=== PATIENT | male | born 1985 | race Caucasian/White ===

== ENCOUNTER 2024-10-11 21:22 | Emergency (ER) | payer BC ==
[~2024-10-11] VITALS: Ht 165.1 cm; Wt 68.0 kg
[2024-10-11 22:26] LABS: BASOPHILS ABSOLUTE AUTO 0.04 K/mm3 (0.00-0.23); BASOPHILS PERCENT AUTO 1 % (0-2); EOSINOPHILS ABSOLUTE AUTO 0.14 K/mm3 (0.00-0.68); EOSINOPHILS PERCENT AUTO 2 % (0-6); Hematocrit 45.3 % (37.0-53.0); Hemoglobin 15.4 g/dL (13.5-17.5); IMMATURE GRAN ABSOLUTE AUTO 0.01 K/mm3 (0.00-0.10); IMMATURE GRAN PERCENT AUTO 0 % (0-1); LYMPHOCYTES ABSOLUTE AUTO 2.18 K/mm3 (0.84-5.20); LYMPHOCYTES PERCENT AUTO 32 % (21-46); MONOCYTES ABSOLUTE AUTO 0.57 K/mm3 (0.16-1.47); MONOCYTES PERCENT AUTO 8 % (4-13); Mean Corpuscular HGB 30.4 pg (26.0-34.0); Mean Corpuscular Volume 90 fL (80-100); Mean Platelet Volume 11.9 fL (9.1-12.4); NEUTROPHILS ABSOLUTE AUTO 3.87 K/mm3 (1.96-9.15); NEUTROPHILS PERCENT AUTO 57 % (41-73); Platelet Count 229 K/mm3 (150-400); RDW Coefficient Variation 12.5 % (11.7-14.2); Red Blood Cell Count 5.06 M/mm3 (4.30-5.90); White Blood Cell Count 6.81 K/mm3 (4.00-11.30)
[2024-10-11 22:39] LABS: Albumin, Blood 3.9 g/dL (3.4-5.0); Albumin/Globulin Ratio 1.1 (0.8-1.8); Bilirubin, Total 0.6 mg/dL (0.1-1.0); Bun/Creatinine Ratio 11.5 (12.0-20.0); Creatinine, Blood 1.22 mg/dL (0.60-1.20); Globulin, Blood 3.4 g/dL (2.2-4.0); Potassium, Blood 3.6 mmol/L (3.5-5.5); Total Protein, Blood 7.3 g/dL (6.4-8.2)
== END 2024-10-11 23:30 | disposition other institution (70) ==
LOC: ER 21:22
PROVIDERS: Physician Assistant
DX: Z65.9 Problem related to unspecified psychosocial circumstances (principal)
CPT/HCPCS: 80053; 85025; 93005; 93010; 99284-25

== ENCOUNTER 2024-10-11 22:45 | Inpatient (IN) | payer BC ==
[~2024-10-11] VITALS: Ht 165.1 cm; Wt 63.0 kg
[2024-10-11] MEDS ORDERED: Ondansetron 4 MG SoluTab MM PRN (23:20)
[2024-10-11] MEDS ORDERED: Calcium Carbonate 500 MG Tab Chew PO PRN (23:25)
[2024-10-11] MEDS ORDERED: LORazepam 2 MG Tab PO PRN (23:25)
[2024-10-11] MEDS ORDERED: Ibuprofen 600 MG Tab PO PRN (23:25)
[2024-10-11] MEDS ORDERED: OLANZapine ODT 10 MG Tab MM PRN (23:25)
[2024-10-11] MEDS ORDERED: Aluminum Hydroxide 320MG/5ML 473 ML PO PRN (23:25)
[2024-10-11] MEDS ORDERED: Polyethylene Glycol 3350 17 gm PO PRN (23:25)
[2024-10-11] MEDS ORDERED: LORazepam 2 MG/ML 1ML Injection IM PRN (23:25)
[2024-10-11] MEDS ORDERED: DiphenhydrAMINE HCl 50 MG Cap PO PRN (23:30)
[2024-10-11] MEDS ORDERED: Haloperidol 5 MG Tab PO PRN (23:30)
[2024-10-11] MEDS ORDERED: Melatonin 3 MG Tab PO PRN (23:30)
[2024-10-11] MEDS ORDERED: TraZODone HCl 50 MG Tab PO PRN (23:30)
[2024-10-11] MEDS ORDERED: FLU VACC TS2024-25(6MOS UP)/PF 45 MCG/0.5 ML SYRINGE IM ONE (23:30)
[2024-10-11] MEDS ORDERED: DiphenhydrAMINE HCl 50 MG/ML 1ML Vial IV PRN (23:30)
[2024-10-11] MEDS ORDERED: Acetaminophen 325 MG TABLET PO PRN (23:30)
[2024-10-11] MEDS ORDERED: HydrOXYzine Pamoate 50 MG Cap PO PRN (23:35)
[2024-10-11] MEDS ORDERED: Haloperidol Lactate Inj. 5 MG/ML Injection IM PRN (23:35)
[2024-10-12 00:30] VITALS: BP 131/74
[2024-10-12 00:33] VITALS: BP 131/74
--- NOTE | 2024-10-12 00:51 | NUR ---
ADMISSION NOTE: PATIENT ARRIVED ON U AT 2330 WITH MHA AND SECURITY. HE WAS COOPERATIVE THROUGHOUT THE ADMISSION PROCESS. HE WAS SHOWN HIS ROOM AND GIVEN PRN TRAZODONE, MELATONIN AND VISTARIL AT HIS REQUEST. HE STATED THAT HE HASN'T BEEN SLEEPING WELL LATELY AND WANTED A GOOD NIGHT'S SLEEP. HE STATED THAT HE IS "LOOKING FORWARD TO A DIAGNOSIS" AND "LOOKING FORWARD TO BEING ON THE RIGHT MEDICATIONS". S.O./FORMER STEPHEN COLEMAN IS A [employer] WORK[employer] FOR HIM. SHE STATES THAT SHE NEEDS TO KNOW IF HE IS LEAVING BECAUSE SHE IS STAYING AT THE HOME TO WATCH HIS PETS. SHE WILL CALL IN AM.
--- NOTE | 2024-10-12 04:23 | NUR ---
SHIFT SUMMARY: PATIENT WENT TO BED AFTER ADMISSION PROCESS. HE HAS BEEN RESTING QUIETLY WITH EYES CLOSED AND RESPIRATIONS CONFIRMED. HE DENIED ANY SUICIDAL IDEATION OR THOUGHTS OF SELF HARM. CONTINUING TO MONITOR FOR SAFETY WITH Q15 MINUTE CHECKS.
[2024-10-12] MEDS ORDERED: Multivitamins 1 Tab PO SCH (09:00)
[2024-10-12 10:36] LABS: Source, Urine Clean Catch
--- NOTE | 2024-10-12 10:38 | NUR ---
PT UP TO NURSES STATION REQUESTING CELL PHONE. PT DENIED AND UNIT PROTOCOL EXPLAINED. PT STARTED PACING WITH RAPID SPEECH INSISTING THAT HE IS [place] AND CAN LEAVE RIGHT NOW, REQUESTING BELONGINGS. PT EDUCATED ON AMA PROCESS. PT STATES HE WOULD LIKE US TO CALL THE POLICE WE ARE KIDNAPPING HIM. MD NOTIFIED. NO ORDERS RECIEVED. PT OFFERED HYDROXYZINE AND ZYPREXA FOR ANXIETY, HE DECLINED REQUESTING BENZO. PT THEN ESCORTED TO DINNING ROOM FOR SNACK. HE WAS ABLE TO DEESCALATE AND HAVE A CALM CONVERSATION. HE STATED THAT HE DOES HEAR AH, AND THAT MEDICATION STABILIZATION WOULD BE BENIFICIAL. HE STATES HE HAS BEEN USING DRUGS AND HAS SIGNIFICANT LIFE STRESSORS AT THIS TIME. WILL CONTINUE POC
[2024-10-12 10:46] LABS: Appearance, Urine Clear (Clear); Bilirubin, Urine Neg (Neg); Blood, Urine Neg (Neg); Color, Urine Yellow (P-Yellow); Glucose Qualitative, Urine Neg (Neg); Ketones, Urine Neg (Neg); Leukocyte Esterase, Urine Neg (Neg); Nitrite, Urine Neg (Neg); Protein, Urine 1+ (Neg); Specific Gravity, Urine 1.025 (1.003-1.022); Urobilinogen, Urine NORM (Normal)
[2024-10-12 10:59] LABS: U Amphetamine Screen DETECTED; U Barbituate Screen Not Detected; U Benzodiazapine Screen DETECTED; U Buprenorphine Screen Not Detected; U Cannabinoids Screen Not Detected; U Cocaine Screen Not Detected; U Methadone Screen Not Detected; U Methamphetamine Screen DETECTED; U Opiates Screen Not Detected; U Oxycodone Screen Not Detected; U Phencyclidine Screen Not Detected
[2024-10-12] MEDS ORDERED: ClonazePAM 0.5 MG Tab PO PRN (12:10)
--- NOTE | 2024-10-12 17:29 | NUR ---
SHIFT NOTE: PT REFUSED TO GET OOB TO EAT BREAKFAST. WHEN HE GOT UP HE WILLINGLY PROVIDED A URINE SAMPLE FOR UA AND TOXIN SCREEN. PT DOWN TO NURSE STATION DEMANDING TO D/C, RECIEVE BENZO MEDS FOR ANXIETY, AND SEE THE DR IMMEDIATELY. WHEN INFORMED THAT MD WILL BE IN TO DO ROUNDS IN A LITTLE WHILE PT STARTED DEMANDING TO CALL THE POLICE ACCUSING THE UNIT STAFF OF KIDNAPPING HIM AGAINST HIS WILL AND THAT HE WAS UNAWARE THAT [facility] WAS A LOCKED UNIT. PT AGITATED AND KEPT MAKING DEMANDS. CRN CALMED PT ENOUGH FOR HIM TO AGREE TO WAIT FOR DR AND HE WENT BACK TO HIS ROOM. AFTER PT SAW THE DR HE WAS MORE CALM FOR THE REST OF DAY. HE RECIEVED PRN KLONOPIN FOR ANXIETY. HE HAD A VISIT AFTER DINNER WITH HIS EX S/O. PT WAS COMPLIANT WITH ALL MEDICATIONS THIS SHIFT.
[2024-10-12 20:54] VITALS: BP 136/78
[2024-10-12] MEDS ORDERED: QUEtiapine Fumarate 50 MG TAB PO SCH (21:00)
[2024-10-12] MEDS ORDERED: BuPROPion HCl SR 100 MG TabCR PO SCH (21:00)
--- NOTE | 2024-10-13 04:22 | NUR ---
SHIFT SUMMARY: PATIENT WAS IN BED AT THE BEGINNING OF THE SHIFT. HE GOT UP FOR SNACK AND FOLLOW UP TIME AT 1999. HE THEN WENT BACK TO BED. HE WAS COMPLIANT WITH EVENING MEDICATION ADMINISTRATION. HE THEN WENT RIGHT BACK TO BED WHERE HE WAS NOTED TO BE RESTING QUIETLY WITH EYES CLOSED AND RESPIRATIONS CONFIRMED. HE DENIED THOUGHTS OF SUICIDAL IDEATION OR SELF-HARMING. HE STATED THAT HE ONLY NEEDS HIS MEDICATIONS REGULATED, THEN DISCHARGE. HIS EX-FIANCEE CAME TO VISIT. HE DID NOT STATE ANYTHING ABOUT THE VISIT. CONTINUING TO MONITOR FOR SAFETY WITH Q15 MINUTE CHECKS.
[2024-10-13 08:13] VITALS: BP 116/73
[2024-10-13] MEDS ORDERED: BUPR100ER PO (11:27)
--- NOTE | 2024-10-13 12:07 | NUR ---
DISCHARGE PT A/O X4; DENIES SI, HI, OR ANY HALLUCINATIONS. PT WANTING TO LEAVE DUE TO FEELING THAT HE WOULD DO BETTER OUTPATIENT. PT SPOKE WITH PSYCHIATRIST AND DISCHARGE ORDERS RECEIVED. PT MEDICATIONS FAXED TO [facility]. PT REFUSED TO FILL OUT SAFETY PLAN. PT REPORTS THAT HE HAS AN APPOINTMENT TO WITH NEW PCP COMING UP AND RECOMMENDED TO FOLLOW UP WITH THEM. PT ALSO INSTRUCTED TO CONTACT CURRENT PCP IF NEEDED SINCE THEY MANAGED PT'S PSYCH MEDICATIONS IN THE PAST. PT VERBALIZED UNDERSTANDING. PT ALSO PROVIDED WITH PHONE NUMBER TO PATIENT ADVOCATE AND FORM FOR GRIEVANCE PROCESS. BELONGINGS RETURNED TO PATIENT AND PT TO DRIVE HIMSELF HOME.
== END 2024-10-13 12:19 | disposition home or self-care (01) | DRG 881 ==
LOC: BHU 22:45
PROVIDERS: ADMIT Psychiatry & Neurology Psychiatry
DX: F32.A Depression, unspecified (principal); F43.25 Adjustment disorder with mixed disturbance of emotions and conduct; F15.10 Other stimulant abuse, uncomplicated; Z79.899 Other long term (current) drug therapy; F10.11 Alcohol abuse, in remission
CPT/HCPCS: 90656; A9270